=== PATIENT | female | born 1950 | race Caucasian/White ===

== ENCOUNTER 2022-08-26 22:09 | Inpatient (IN) | payer OTHER ==
[~2022-08-26] VITALS: Ht 157.5 cm; Wt 90.8 kg
[2022-08-26] MEDS ORDERED: SODIUM CHLORIDE 0.9% 1,000 ML IV ONE (22:30)
[2022-08-26 23:28] LABS: BASOPHILS % 0.2 % (0.0-2.0); EOSINOPHILS % 1.8 % (0.0-5.0); HEMATOCRIT. 31.8 % (36.0-48.0); MEAN CORPUSCULAR HEMOGLOBIN 25.1 pg (28.0-32.0); MEAN CORPUSCULAR VOLUME 80.2 fL (81.0-99.0); MEAN PLATELET VOLUME 8.2 fl (7.4-10.4); MONOCYTES % 5.5 % (2.0-8.0); NEUTROPHILS % 83.5 % (40.0-76.0); PLATELET 329 x1000/uL (130-400); RED BLOOD CELL COUNT 3.97 mill/uL (4.2-5.4); RED CELL DISTRIBUTION WIDTH 21.9 % (11.6-14.6)
[2022-08-26] MEDS ORDERED: DEXT 10% WATER 1,000 ML IV ONE (23:45)
[2022-08-26 23:55] LABS: BG BASE EXCESS -3.4 mmol/L (-2.0-2.0); BG CARBOXYHEMOGLOBIN 0.9 % (0.5-1.5); BG DEOXYHEMOGLOBIN 5.9 % (0.0-5.0); BG HCO3 ACT 21.8 mmol/L (22.0-26.0); BG METHEMOGLOBIN 0.3 % (0.0-1.5); BG OXYHEMOGLOBIN 92.9 % (94.0-97.0); BG PCO2 39.8 mmHg (35.0-45.0); BG PH 7.357 (7.350-7.450); BG SAMPLE SITE RIGHT BRACHIAL; BG TOTAL HEMOGLOBIN 10.6 g/dL (12.0-18.0); BG VENT MODE NASAL CANNULA
[2022-08-27 00:05] LABS: CHLORIDE 96 mEq/L (98-107)
[2022-08-27] MEDS ORDERED: ALBUTEROL (0.083%) 2.5MG/3ML NEB HHN STA (00:47)
[2022-08-27] MEDS ORDERED: IPRATROPIUM BROMIDE (0.02%) 0.5MG/2.5ML NEB HHN STA (00:47)
[2022-08-27] MEDS ORDERED: METHYLPREDNISOLONE SOD SUCC 125 MG/2 ML VIAL IV ONE (02:00)
[2022-08-27] MEDS ORDERED: DEXTROSE 50% WATER 50ML SYRINGE IV ONE (09:42)
[2022-08-27] MEDS ORDERED: DEXTROSE 50% WATER 50ML SYRINGE IV SCH (09:45)
[2022-08-27] MEDS ORDERED: PIPERACILLIN/TAZ 3.375G PREMIX 50 ML IV SCH (10:00)
[2022-08-27] MEDS ORDERED: DEXTROSE 10% WATER 500 ML IV SCH (10:00)
[2022-08-27] MEDS: DEXT 10% WATER 1,000 ML IV SCH (10:26)
[2022-08-27] MEDS ORDERED: GABA300C PO (11:27)
[2022-08-27] MEDS ORDERED: DOCU250C69 PO (11:27)
[2022-08-27] MEDS ORDERED: MELO-106 PO (11:27)
[2022-08-27] MEDS ORDERED: ONDA4TAB11 PO (11:27)
[2022-08-27] MEDS ORDERED: TOPUD PO (11:27)
[2022-08-27] MEDS ORDERED: ASPI-1079 PO (11:27)
[2022-08-27] MEDS: IPRATROPIUM/ALBUTEROL 0.5-3(2.5)MG/3ML NEB HHN SCH ×2 (12:00→21:21)
[2022-08-27 13:44] LABS: CLARITY URINE TURBID (CLEAR); COLOR URINE DARK YELLOW (YELLOW); KETONES URINE TRACE (NEGATIVE); LEUKOCYTE ESTERASE URINE TRACE (NEGATIVE); NITRITE URINE NEGATIVE (NEGATIVE); OCCULT BLOOD URINE NEGATIVE (NEGATIVE); PROTEIN URINE 3+ (NEGATIVE); SPECIFIC GRAVITY URINE 1.024 (1.005-1.030)
[2022-08-27 18:00] VITALS: BP 156/72
[2022-08-27 20:20] VITALS: BP 148/88
[2022-08-27] MEDS ORDERED: PIPERACILLIN/TAZOBACTAM 3.375 G in DEXTROSE 5% WATER 50 ML IV SCH (22:00)
[2022-08-27 22:10] VITALS: BP 125/38
[2022-08-27] MEDS: PIPERACILLIN/TAZOBACTAM 3.375 G in DEXTROSE 5% WATER 50 ML IV SCH (23:12)
[2022-08-28] VITALS (11 sets, daily range): BP systolic 144–185; BP diastolic 73–96
[2022-08-28] MEDS: DEXT 10% WATER 1,000 ML IV SCH (00:39)
[2022-08-28] MEDS: IPRATROPIUM/ALBUTEROL 0.5-3(2.5)MG/3ML NEB HHN SCH ×4 (01:11→20:04)
[2022-08-28] MEDS: PIPERACILLIN/TAZOBACTAM 3.375 G in DEXTROSE 5% WATER 50 ML IV SCH (06:49)
[2022-08-28 07:05] LABS: EOSINOPHILS % 0.1 % (0.0-5.0); HEMATOCRIT. 26.3 % (36.0-48.0); HEMOGLOBIN. 8.2 g/dL (12.0-16.0); LYMPHOCYTES % 9.3 % (20.0-50.0); MEAN CORPUSCULAR HEMOGLOBIN 24.4 pg (28.0-32.0); MEAN PLATELET VOLUME 8.5 fl (7.4-10.4); MONOCYTES % 6.6 % (2.0-8.0); PLATELET 287 x1000/uL (130-400); RED BLOOD CELL COUNT 3.38 mill/uL (4.2-5.4)
[2022-08-28] MEDS: AMLODIPINE 10MG TABLET PO SCH ×2 (09:00→09:01)
[2022-08-28] MEDS ORDERED: MEROPENEM 1000MG in NORMAL SALINE 100ML IV SCH (13:00)
[2022-08-28] MEDS: MEROPENEM 1000MG in NORMAL SALINE 100ML IV SCH (16:41)
[2022-08-28] MEDS ORDERED: DEXTROSE 50% WATER 50ML SYRINGE IV PRN (17:45)
[2022-08-28] MEDS: INSULIN LISPRO 100 UNITS/ML SUBCUT SCH ×2 (18:13→21:00)
[2022-08-28] MEDS: BLOOD SUGAR DIAGNOSTIC STRIP TEST SCH (21:00)
[2022-08-28] MEDS ORDERED: INSULIN LISPRO 100 UNITS/ML SUBCUT SCH (21:00)
[2022-08-28] MEDS: HYDRALAZINE HCL 50MG TABLET PO SCH (22:30)
[2022-08-29] VITALS (12 sets, daily range): BP systolic 131–175; BP diastolic 69–97
[2022-08-29] MEDS: IPRATROPIUM/ALBUTEROL 0.5-3(2.5)MG/3ML NEB HHN SCH ×4 (02:08→19:48)
[2022-08-29] MEDS: MEROPENEM 1000MG in NORMAL SALINE 100ML IV SCH ×2 (05:50→16:50)
[2022-08-29] MEDS: BLOOD SUGAR DIAGNOSTIC STRIP TEST SCH ×4 (06:59→21:06)
[2022-08-29 07:13] LABS: BASOPHILS % 0.1 % (0.0-2.0); EOSINOPHILS % 0.5 % (0.0-5.0); HEMATOCRIT. 26.8 % (36.0-48.0); HEMOGLOBIN. 8.5 g/dL (12.0-16.0); LYMPHOCYTES % 10.9 % (20.0-50.0); MEAN CORPUSCULAR HEMOGLOBIN 25.3 pg (28.0-32.0); MEAN CORPUSCULAR VOLUME 79.6 fL (81.0-99.0); MEAN PLATELET VOLUME 8.8 fl (7.4-10.4); NEUTROPHILS % 80.5 % (40.0-76.0); PLATELET 299 x1000/uL (130-400); RED BLOOD CELL COUNT 3.37 mill/uL (4.2-5.4); RED CELL DISTRIBUTION WIDTH 21.4 % (11.6-14.6)
[2022-08-29] MEDS: HYDRALAZINE HCL 50MG TABLET PO SCH ×2 (08:50→21:04)
[2022-08-29] MEDS: AMLODIPINE 10MG TABLET PO SCH (08:50)
[2022-08-29] MEDS: INSULIN LISPRO 100 UNITS/ML SUBCUT SCH ×4 (08:53→21:00)
[2022-08-29] MEDS: ACETAMINOPHEN 325MG TABLET PO PRN ×2 (10:26→16:51)
[2022-08-29] MEDS: DOCUSATE SODIUM SUGAR FREE 100MG/10ML UDC NG SCH (10:26)
[2022-08-29] MEDS ORDERED: FUROSEMIDE 20MG/2ML VIAL IVP NR (10:30)
[2022-08-29] MEDS ORDERED: LACTULOSE 20G/30ML UDC PO NR (11:30)
[2022-08-29] MEDS ORDERED: LEVOTHYROXINE SODIUM 150MCG TABLET PO ONE (13:15)
[2022-08-29] MEDS ORDERED: ATEN100T PO (14:07)
[2022-08-29] MEDS ORDERED: LEVO150T8 MT (14:08)
[2022-08-29] MEDS: ATENOLOL 50 MG TABLET PO SCH (21:05)
[2022-08-30] VITALS (11 sets, daily range): BP systolic 135–179; BP diastolic 62–90
[2022-08-30] MEDS: IPRATROPIUM/ALBUTEROL 0.5-3(2.5)MG/3ML NEB HHN SCH ×3 (01:21→14:05)
[2022-08-30] MEDS: MEROPENEM 1000MG in NORMAL SALINE 100ML IV SCH ×2 (05:47→16:35)
[2022-08-30] MEDS: ACETAMINOPHEN 325MG TABLET PO PRN (06:20)
[2022-08-30] MEDS ORDERED: LEVOTHYROXINE SODIUM 150MCG TABLET PO SCH (06:50)
[2022-08-30 06:55] LABS: BASOPHILS % 0.1 % (0.0-2.0); EOSINOPHILS % 2.6 % (0.0-5.0); LYMPHOCYTES % 15.8 % (20.0-50.0); MEAN CORPUSCULAR VOLUME 77.8 fL (81.0-99.0); MEAN PLATELET VOLUME 8.3 fl (7.4-10.4); MONOCYTES % 8.4 % (2.0-8.0); NEUTROPHILS % 73.1 % (40.0-76.0); PLATELET 376 x1000/uL (130-400); RED CELL DISTRIBUTION WIDTH 21.1 % (11.6-14.6)
[2022-08-30] MEDS: BLOOD SUGAR DIAGNOSTIC STRIP TEST SCH ×3 (07:32→16:35)
[2022-08-30] MEDS: ATENOLOL 50 MG TABLET PO SCH (08:20)
[2022-08-30] MEDS: HYDRALAZINE HCL 50MG TABLET PO SCH (08:20)
[2022-08-30] MEDS: AMLODIPINE 10MG TABLET PO SCH (08:20)
[2022-08-30] MEDS: DOCUSATE SODIUM SUGAR FREE 100MG/10ML UDC NG SCH (08:21)
[2022-08-30] MEDS: INSULIN LISPRO 100 UNITS/ML SUBCUT SCH ×3 (08:21→17:33)
[2022-08-30] MEDS ORDERED: IOHEXOL-300 100 ML BOTTLE ONE (16:28)
[2022-08-30] MEDS ORDERED: FUROSEMIDE 20MG/2ML VIAL IVP NR (16:30)
== END 2022-08-30 20:30 | disposition short-term general hospital (02) | DRG 871 ==
LOC: ER 22:09 → 3WST 08-27 02:09 → EDBEDREQTM 08-27 02:13 → EDBEDREQSVC 08-27 02:13 → EDBEDREQ 08-27 02:13 → 3WST 08-27 18:02
PROVIDERS: ADMIT Internal Medicine; ATTEND Internal Medicine
PROC: 5A09357 Assistance with Respiratory Ventilation, Less than 24 Consecutive Hours, Continuous Positive Airway Pressure (ICD-10-PCS; principal; 2022-08-27)
DX: A41.51 Sepsis due to Escherichia coli [E. coli] (principal); G93.41 Metabolic encephalopathy; J96.01 Acute respiratory failure with hypoxia; J69.0 Pneumonitis due to inhalation of food and vomit; E87.1 Hypo-osmolality and hyponatremia; R65.20 Severe sepsis without septic shock; Z20.822 Contact with and (suspected) exposure to COVID-19; D64.9 Anemia, unspecified; E11.649 Type 2 diabetes mellitus with hypoglycemia without coma; I10 Essential (primary) hypertension; M19.90 Unspecified osteoarthritis, unspecified site; K59.00 Constipation, unspecified; Z96.651 Presence of right artificial knee joint
CPT/HCPCS: 36415; 36600; 71045; 71260; 74177; 78580; 80048; 80053; 81003; 82375; 82805; 82962; 83036; 83605; 83880; 84145; 84484; 85025; 85379; 87077; 87186; 87426; 93005; 93970; 94640; 94660; 97116; 97162; 97166; 97530; 99291; C9803; J1815; J1940; J2185; J2543; J2930; J7030; J7060; Q9967

== ENCOUNTER 2023-05-20 20:08 | Inpatient (IN) | payer MEDICARE, OTHER ==
[~2023-05-20] VITALS: Ht 160 cm; Wt 61.9 kg
[~2023-05-20 20:08] MED LIST: ASPI-1079 PO; ATEN100T PO; DOCU250C69 PO; GABA300C PO; LEVO150T8 MT; MELO-106 PO; ONDA4TAB11 PO; TOPUD PO
[2023-05-20 20:10] VITALS: O2SAT 98
[2023-05-20] MEDS ORDERED: SODIUM CHLORIDE 0.9% 1000ML BAG (SEPSIS BOLUS) IV ONE (21:15)
[2023-05-20] MEDS ORDERED: PIPERACILLIN/TAZ 3.375G PREMIX 50 ML IV ONE (21:15)
[2023-05-20 22:34] LABS: BASOPHILS % 0.2 % (0.0-2.0); EOSINOPHILS % 0.6 % (0.0-5.0); HEMATOCRIT. 31.5 % (36.0-48.0); HEMOGLOBIN. 10.3 g/dL (12.0-16.0); MEAN CORPUSCULAR HEMOGLOBIN 28.1 pg (28.0-32.0); MEAN CORPUSCULAR VOLUME 86.1 fL (81.0-99.0); MEAN PLATELET VOLUME 10.4 fl (7.4-10.4); MONOCYTES % 7.4 % (2.0-8.0); NEUTROPHILS % 81.8 % (40.0-76.0); PLATELET 152 x1000/uL (130-400); RED BLOOD CELL COUNT 3.65 mill/uL (4.2-5.4); RED CELL DISTRIBUTION WIDTH 17.9 % (11.6-14.6)
[2023-05-20 22:44] LABS: CHLORIDE 95 mEq/L (98-107)
[2023-05-20 23:35] LABS: CLARITY URINE TURBID (CLEAR); COLOR URINE DARK YELLOW (YELLOW); KETONES URINE TRACE (NEGATIVE); LEUKOCYTE ESTERASE URINE 1+ (NEGATIVE); NITRITE URINE NEGATIVE (NEGATIVE); OCCULT BLOOD URINE NEGATIVE (NEGATIVE); PH URINE 5.5 (4.5-8.0); PROTEIN URINE 2+ (NEGATIVE); SPECIFIC GRAVITY URINE 1.017 (1.005-1.030)
[2023-05-21] VITALS (81 sets, daily range): BP systolic 28–183; BP diastolic 18–136; PULSE 48–60; RESP 9–21; TEMP 97.5–98.6
[2023-05-21] MEDS ORDERED: HYDROCODONE/ACETAMINOPHEN 5/325MG TABLET PO ONE (00:30)
[2023-05-21] MEDS ORDERED: NOREPINEPHRINE 8MG/250ML PMX 250 ML IV ONE (01:00)
[2023-05-21] MEDS ORDERED: VANCOMYCIN 1G PREMIX 200 ML IV NR (01:00)
[2023-05-21] MEDS: LACTULOSE 20G/30ML UDC PO NR ×2 (01:17→01:43)
[2023-05-21] MEDS ORDERED: SODIUM CHLORIDE 0.9% 500 ML IV ONE (01:45)
[2023-05-21 01:46] LABS: INR 1.7; PARTIAL THROMBOPLASTIN TIME 43.4 sec (23.4-31.0); PROTHROMBIN TIME 17.2 sec (9.6-11.0)
[2023-05-21] MEDS ORDERED: LACTULOSE ENEMA 1,000ML BOTTLE PR NR (02:45)
[2023-05-21] MEDS ORDERED: CALCIUM GLUCONATE 100MG/ML 10ML VIAL IV NR (02:45)
[2023-05-21] MEDS ORDERED: PIPERACILLIN/TAZ 3.375G PREMIX 50 ML IV SCH (03:45)
[2023-05-21] MEDS ORDERED: ACETAMINOPHEN 650MG SUPP PR PRN ×2 (03:45)
[2023-05-21] MEDS ORDERED: ONDANSETRON HCL 4MG/2ML INJ IV PRN (03:45)
[2023-05-21] MEDS: DEXT 5%/0.45% NACL 1000ML 1,000 ML IV SCH ×3 (04:18→23:26)
[2023-05-21] MEDS ORDERED: NOREPINEPHRINE 32 MG in DEXT 5% WATER 218 ML IV PRN (04:30)
[2023-05-21] MEDS ORDERED: PIPERACILLIN/TAZOBACTAM 3.375 G in DEXTROSE 5% WATER 50 ML IV SCH (09:00)
[2023-05-21 09:28] LABS: HEMATOCRIT 29.2 % (36.0-48.0); HEMOGLOBIN 9.4 g/dL (12.0-16.0); MEAN CORPUSCULAR HEMOGLOBIN 28.5 pg (28.0-32.0); MEAN CORPUSCULAR VOLUME 88.7 fL (81.0-99.0); PLATELET 147 x1000/uL (130-400)
[2023-05-21 10:12] LABS: T4 FREE 1.23 ng/dL (0.76-1.46)
[2023-05-21] MEDS ORDERED: MINERAL OIL ENEMA 133ML PR NR (13:00)
[2023-05-21 13:13] LABS: HEPATITIS B SURFACE ANTIGEN NEGATIVE
[2023-05-21] MEDS: LACTULOSE 20G/30ML UDC PO SCH (13:52)
[2023-05-21] MEDS ORDERED: LACTULOSE 20G/30ML UDC PO SCH (14:00)
[2023-05-21] MEDS: PHYTONADIONE 10MG/ML AMP SUBCUT SCH (16:52)
[2023-05-21] MEDS: MEROPENEM 500 MG in SODIUM CHLORIDE 0.9% 50 ML IV SCH (16:52)
[2023-05-21 19:27] LABS: TOTAL IRON BINDING CAPACITY 75 ug/dL (250-450)
[2023-05-21] MEDS ORDERED: FAMOTIDINE 20MG/2ML VIAL IV SCH (21:00)
[2023-05-21] MEDS ORDERED: DEXTROSE 50% WATER 50ML SYRINGE IV ONE (22:39)
[2023-05-21 22:54] LABS: FERRITIN 1158 ng/mL (10-291)
[2023-05-21 23:08] LABS: VITAMIN B12 SERUM >2000 pg/mL pg/mL (211-911)
[2023-05-22] VITALS (144 sets, daily range): BP systolic 33–164; BP diastolic 19–116; PULSE 50–125; RESP 5–143; TEMP 88–97.8
[2023-05-22] MEDS: LACTULOSE 20G/30ML UDC PO SCH ×4 (00:14→21:38)
[2023-05-22] MEDS ORDERED: PHENYLEPHRINE 50 MG in DEXT 5% WATER 245 ML IV PRN (04:00)
[2023-05-22] MEDS: BLOOD SUGAR DIAGNOSTIC STRIP TEST SCH ×8 (04:00→23:58)
[2023-05-22] MEDS: PHENYLEPHRINE 100 MG in DEXT 5% WATER 250 ML IV PRN ×3 (04:34→21:37)
[2023-05-22] MEDS: VASOPRESSIN 20 UNIT in SODIUM CHLORIDE 0.9% 99 ML IV PRN ×2 (04:35→14:20)
[2023-05-22] MEDS: DEXT 5%/0.45% NACL 1000ML 1,000 ML IV SCH ×2 (05:18→13:56)
[2023-05-22] MEDS ORDERED: MIDAZOLAM 100MG/100ML PMX 100 ML IV PRN (06:15)
[2023-05-22] MEDS ORDERED: MIDAZOLAM HCL 100 MG in SODIUM CHLORIDE 0.9% 100 ML IV PRN (06:15)
[2023-05-22 06:16] LABS: BG BASE EXCESS -25.1 mmol/L (-2.0-2.0); BG CARBOXYHEMOGLOBIN 0.3 % (0.5-1.5); BG DEOXYHEMOGLOBIN 0.8 % (0.0-5.0); BG FRACTION INSPIRED OXYGEN 100; BG HCO3 ACT 4.7 mmol/L (22.0-26.0); BG METHEMOGLOBIN 0.3 % (0.0-1.5); BG OXYGEN SATURATION 99.2 % (92.0-98.5); BG OXYHEMOGLOBIN 98.6 % (94.0-97.0); BG PCO2 19.7 mmHg (35.0-45.0); BG PH 6.992 (7.350-7.450); BG PO2 439.8 mmHg (75.0-100.0); BG SAMPLE SITE LEFT FEMORAL; BG TOTAL HEMOGLOBIN 10.8 g/dL (12.0-18.0); BG TOTAL RESPIRATORY RATE 16 b/min; BG VENT MODE VENT - AC
[2023-05-22] MEDS ORDERED: SODIUM BICARBONATE 8.4% 1 MEQ/ML 50ML SYR IV NR ×3 (06:30→23:15)
[2023-05-22] MEDS: MEROPENEM 500 MG in SODIUM CHLORIDE 0.9% 50 ML IV SCH ×2 (06:52→17:31)
[2023-05-22] MEDS ORDERED: DEXTROSE 50% WATER 50ML SYRINGE IV PRN ×2 (08:00→15:00)
[2023-05-22] MEDS: SODIUM BICARBONATE 150 MEQ in SODIUM CHLORIDE 0.45% 1,000 ML IV SCH ×2 (08:13→17:31)
[2023-05-22] MEDS: EPINEPHRINE 10 MG in SODIUM CHLORIDE 0.9% 240 ML IV PRN ×5 (08:16→21:36)
[2023-05-22] MEDS: PHYTONADIONE 10MG/ML AMP SUBCUT SCH (08:26)
[2023-05-22] MEDS: INSULIN LISPRO 100 UNITS/ML SUBCUT SCH ×4 (08:26→20:26)
[2023-05-22 09:30] LABS: BG BASE EXCESS -12.1 mmol/L (-2.0-2.0); BG CARBOXYHEMOGLOBIN 0.3 % (0.5-1.5); BG FRACTION INSPIRED OXYGEN 50; BG HCO3 ACT 11.1 mmol/L (22.0-26.0); BG METHEMOGLOBIN 0.3 % (0.0-1.5); BG OXYHEMOGLOBIN 97.4 % (94.0-97.0); BG PH 7.386 (7.350-7.450); BG PO2 136.3 mmHg (75.0-100.0); BG SAMPLE SITE RIGHT BRACHIAL; BG TOTAL HEMOGLOBIN 9.7 g/dL (12.0-18.0); BG VENT MODE VENT - AC
[2023-05-22 11:06] LABS: MEAN CORPUSCULAR HEMOGLOBIN 28.5 pg (28.0-32.0); MEAN PLATELET VOLUME 10.5 fl (7.4-10.4); PLATELET 122 x1000/uL (130-400); RED BLOOD CELL COUNT 3.16 mill/uL (4.2-5.4); RED CELL DISTRIBUTION WIDTH 19.9 % (11.6-14.6)
[2023-05-22 11:08] LABS: CHLORIDE 101 mEq/L (98-107)
[2023-05-22 11:10] LABS: MEAN CORPUSCULAR VOLUME 91.6 fL (81.0-99.0)
[2023-05-22] MEDS: NOREPINEPHRINE 32 MG in DEXT 5% WATER 218 ML IV PRN ×2 (12:07→21:37)
[2023-05-22 14:56] LABS: NUCLEATED RED BLOOD CELLS 1 /100 WBC; PLATELET ESTIMATE SLIGHTLY DECREASED
[2023-05-22] MEDS ORDERED: VANCOMYCIN 1G PREMIX 200 ML IV NR (15:30)
[2023-05-22] MEDS ORDERED: KCL 20MEQ/100ML PREMIX 100 ML IV NR (19:00)
[2023-05-22] MEDS ORDERED: INSULIN REGULAR (HUMULIN R) 300UNITS/3ML VIAL IV NR (23:15)
[2023-05-22] MEDS ORDERED: SODIUM POLYSTYRENE SULFONATE 15 G/60 ML BOT PO NR (23:15)
[2023-05-22] MEDS ORDERED: DEXTROSE 50% WATER 50ML SYRINGE IV NR (23:15)
[2023-05-23] VITALS (63 sets, daily range): BP systolic 34–155; BP diastolic 15–82; PULSE 67–205; RESP 6–100
[2023-05-23] MEDS: EPINEPHRINE 10 MG in SODIUM CHLORIDE 0.9% 240 ML IV PRN ×3 (00:38→05:50)
[2023-05-23] MEDS: VASOPRESSIN 20 UNIT in SODIUM CHLORIDE 0.9% 99 ML IV PRN (02:31)
[2023-05-23] MEDS: BLOOD SUGAR DIAGNOSTIC STRIP TEST SCH ×2 (04:00→08:52)
[2023-05-23] MEDS: DEXT 5%/0.45% NACL 1000ML 1,000 ML IV SCH (04:17)
[2023-05-23] MEDS: SODIUM BICARBONATE 150 MEQ in SODIUM CHLORIDE 0.45% 1,000 ML IV SCH (05:50)
[2023-05-23] MEDS: MEROPENEM 500 MG in SODIUM CHLORIDE 0.9% 50 ML IV SCH (05:50)
[2023-05-23] MEDS: LACTULOSE 20G/30ML UDC PO SCH (05:51)
[2023-05-23] MEDS: INSULIN LISPRO 100 UNITS/ML SUBCUT SCH (07:00)
[2023-05-23] MEDS ORDERED: SODIUM BICARBONATE 8.4% 1 MEQ/ML 50ML SYR IV NR ×2 (07:45→09:00)
[2023-05-23] MEDS: PHENYLEPHRINE 100 MG in DEXT 5% WATER 250 ML IV PRN (07:58)
[2023-05-23] MEDS: NOREPINEPHRINE 32 MG in DEXT 5% WATER 218 ML IV PRN (08:01)
[2023-05-23 08:46] LABS: MEAN CORPUSCULAR HEMOGLOBIN 28.8 pg (28.0-32.0); MEAN CORPUSCULAR VOLUME 94.6 fL (81.0-99.0); MEAN PLATELET VOLUME 9.8 fl (7.4-10.4); RED BLOOD CELL COUNT 1.41 mill/uL (4.2-5.4); RED CELL DISTRIBUTION WIDTH 20.4 % (11.6-14.6)
[2023-05-23 09:06] LABS: HEMATOCRIT. 13.3 % (36.0-48.0); HEMOGLOBIN. 4.1 g/dL (12.0-16.0); PLATELET 43 x1000/uL (130-400)
[2023-05-23 10:26] LABS: NUCLEATED RED BLOOD CELLS 3 /100 WBC
[2023-05-23 10:27] LABS: D-DIMER 8.12 mg/L FEU (<0.50)
[2023-05-23 10:29] LABS: PLATELET ESTIMATE MARKEDLY DECREASED
[2023-05-23 11:00] LABS: PROTHROMBIN TIME > 100.0 sec (9.6-11.0)
[2023-05-23 11:01] LABS: FIBRINOGEN < 50 mg/dL (200-400); INR > 10.0
== END 2023-05-23 14:37 | DRG 871 ==
LOC: ER 20:08 → MICUSO 05-21 02:37 → MICUNO 05-21 07:45
PROVIDERS: ADMIT Internal Medicine; ATTEND Internal Medicine
PROC: 0BH17EZ Insertion of Endotracheal Airway into Trachea, Via Natural or Artificial Opening (ICD-10-PCS; principal; 2023-05-22)
PROC: 5A1945Z Respiratory Ventilation, 24-96 Consecutive Hours (ICD-10-PCS; 2023-05-22)
PROC: B54BZZA Ultrasonography of Right Lower Extremity Veins, Guidance (ICD-10-PCS; 2023-05-22)
PROC: 06HY33Z Insertion of Infusion Device into Lower Vein, Percutaneous Approach (ICD-10-PCS; 2023-05-22)
PROC: 5A12012 Performance of Cardiac Output, Single, Manual (ICD-10-PCS; 2023-05-23)
DX: A41.9 Sepsis, unspecified organism (principal); D65 Disseminated intravascular coagulation [defibrination syndrome]; G93.41 Metabolic encephalopathy; R65.21 Severe sepsis with septic shock; K72.00 Acute and subacute hepatic failure without coma; J96.00 Acute respiratory failure, unspecified whether with hypoxia or hypercapnia; E87.1 Hypo-osmolality and hyponatremia; N39.0 Urinary tract infection, site not specified; E87.20 Acidosis, unspecified; N17.9 Acute kidney failure, unspecified; E03.9 Hypothyroidism, unspecified; E11.22 Type 2 diabetes mellitus with diabetic chronic kidney disease; K76.0 Fatty (change of) liver, not elsewhere classified; K76.82 Hepatic encephalopathy; R74.01 Elevation of levels of liver transaminase levels; D63.1 Anemia in chronic kidney disease; K56.41 Fecal impaction; E11.65 Type 2 diabetes mellitus with hyperglycemia; E87.5 Hyperkalemia; I12.9 Hypertensive chronic kidney disease with stage 1 through stage 4 chronic kidney disease, or unspecified chronic kidney disease; N18.9 Chronic kidney disease, unspecified; N32.89 Other specified disorders of bladder; Z86.19 Personal history of other infectious and parasitic diseases; Z96.651 Presence of right artificial knee joint; Z98.84 Bariatric surgery status; Z90.710 Acquired absence of both cervix and uterus; Z79.4 Long term (current) use of insulin
CPT/HCPCS: 31500; 36415; 36600; 71045; 74176; 76705; 80048; 80053; 80076; 80307; 81003; 82010; 82140; 82270; 82375; 82607; 82728; 82746; 82805; 82962; 83540; 83550; 83605; 83735; 83880; 84100; 84145; 84439; 84443; 84484; 85025; 85027; 85044; 85379; 85384; 86705; 86709; 86803; 86850; 86900; 86920; 87340; 92950; 94002; 94003; 99291; J0610; J1815; J2185; J2370; J2543; J3370; J3430; J3480; J3490; J7030; J7050; J7060; A4315